=== PATIENT | female | born 1985 | race Caucasian/White ===

== ENCOUNTER 2018-02-22 13:54 | Day surgery (SDC) | payer OTHER ==
[~2018-02-22] VITALS: Ht 167.6 cm; Wt 71.1 kg
[2018-02-22] MEDS ORDERED: LACTATED RINGERS 1,000 ML IV SCH ×2 (14:18→18:30)
[2018-02-22 14:26] VITALS: BP 140/84
[2018-02-22] MEDS ORDERED: LIDOCAINE-MPF 1%, 2ML INFIL ONE (14:30)
[2018-02-22] MEDS ORDERED: NONE PER PT (14:30)
[2018-02-22 15:03] LABS: CULTURE INDICATED? YES; MICROSCOPIC INDICATED
[2018-02-22 15:31] LABS: BASOPHILS # (AUTO) 0.02 x10^3/uL (0-0.1); BASOPHILS % (AUTO) 0 % (0-1); EOSINOPHILS # (AUTO) 0.18 x10^3/uL (0-0.4); EOSINOPHILS % (AUTO) 3 % (1-7); LYMPHOCYTES # (AUTO) 1.35 x10^3/uL (1-3.4); LYMPHOCYTES % (AUTO) 22 % (22-44); MD SCAN; MEAN CORPUSCULAR HEMOGLOBIN 29.3 pg (27.0-34.8); MEAN CORPUSCULAR HGB CONC 33.9 g/dL (32.4-35.8); MEAN CORPUSCULAR VOLUME 86.5 fL (80-100); MEAN PLATELET VOLUME 9.6 fL (7.4-10.4); MONOCYTES % (AUTO) 8 % (2-9); NEUTROPHILS # (AUTO) 4.15 x10^3/uL (1.8-6.8); NEUTROPHILS % (AUTO) 67 % (42-75); PLATELET COUNT 203 x10^3/uL (130-400); RED BLOOD COUNT 4.83 x10^6/uL (3.82-5.3); RED CELL DISTRIBUTION WIDTH 13.1 % (9.6-15.2)
[2018-02-22] MEDS ORDERED: PROPOFOL 10 MG/ML, 20ML ONE ×2 (15:34→15:35)
[2018-02-22] MEDS ORDERED: ONDANSETRON 2MG/ML, 2ML ONE ×2 (15:34)
[2018-02-22] MEDS ORDERED: DEXAMETHASONE 4 MG/ML, 1ML ONE ×2 (15:34→15:35)
[2018-02-22] MEDS ORDERED: LIDOCAINE-MPF 2% ,5ML ONE (15:35)
[2018-02-22] MEDS ORDERED: METOCLOPRAMIDE 5 MG/ML, 2ML ONE (15:35)
[2018-02-22] MEDS ORDERED: CEFAZOLIN 1,000 MG ONE (15:35)
[2018-02-22] MEDS ORDERED: FENTANYL PF 100 MCG/2ML ONE (15:36)
[2018-02-22] MEDS ORDERED: MIDAZOLAM 1 MG/ML, 2ML ONE (15:36)
[2018-02-22] MEDS ORDERED: METHYLERGONOVINE 0.2 MG/ML IM ONE (15:37)
[2018-02-22] MEDS ORDERED: OXYTOCIN 10 UNITS/ML, 1ML ONE (15:37)
[2018-02-22] MEDS ORDERED: BUPIVACAINE 0.25% ONE (15:37)
[2018-02-22] MEDS ORDERED: MISOPROSTOL 200 MCG TABLET ONE (15:37)
[2018-02-22] MEDS ORDERED: EPINEPHRINE 1 MG/ML, 1ML ONE (15:37)
[2018-02-22] MEDS ORDERED: SILVER NITRATE STICK TP ONE (16:32)
[2018-02-22] MEDS ORDERED: OXYcodone 5 MG/5 ML ORAL.SOL UDC ONE (16:51)
[2018-02-22] MEDS ORDERED: LABETALOL 5MG/ML, 20ML IV PRN (17:00)
[2018-02-22] MEDS ORDERED: MEPERIDINE/PF 25MG/0.5ML IVPush PRN (17:00)
[2018-02-22] MEDS ORDERED: ONDANSETRON 2MG/ML, 2ML IVPush PRN (17:00)
[2018-02-22] MEDS ORDERED: HYDROmorphone 1 MG/ML, 1ML IV PRN (17:00)
[2018-02-22] MEDS ORDERED: FENTANYL PF 100 MCG/2ML IV PRN ×2 (17:00→18:30)
[2018-02-22] MEDS ORDERED: MIDAZOLAM 1 MG/ML, 2ML IV PRN (17:00)
[2018-02-22] MEDS ORDERED: OXYcodone 5 MG/5 ML ORAL.SOL UDC PO PRN (17:00)
[2018-02-22] MEDS ORDERED: KETOROLAC 30 MG/1 ML IV PRN (18:30)
[2018-02-22] MEDS ORDERED: ONDANSETRON 2MG/ML, 2ML IV PRN (18:30)
[2018-02-22] MEDS ORDERED: HYDROcodone/APAP 7.5-325MG/15ML UDC PO PRN (18:30)
[2018-02-22 19:13] VITALS: BP 121/74
== END 2018-02-22 20:25 | disposition home or self-care (01) ==
LOC: OR 13:54 → 4NOR 18:01 → OR 20:25
PROVIDERS: ATTEND Obstetrics & Gynecology Reproductive Endocrinology
DX: O02.81 Inappropriate change in quantitative human chorionic gonadotropin (hCG) in early pregnancy (principal)
CPT/HCPCS: 36415; 59820; 81001; 84702; 85025; 87086; 88305; 88331; J0171; J0690; J1100; J2250; J2405; J2704; J2765; J3010; J3490; J7120; J2210; J2590